=== PATIENT | female | born 1970 | race American Indian/Alaskan Native ===

== ENCOUNTER 2017-07-01 10:36 | Day surgery (SDC) | payer MEDICAID ==
[~2017-07-01 10:36] MED LIST: ANCEF/STERILE WATER 2 GM/20 ML IV NR; HEPARIN SUB-Q NR; NACL 0.9% IR ONE
[2017-07-01] MEDS ORDERED: NACL BACTERIOSTATIC INFILTRATI ONE (11:05)
[2017-07-01] MEDS ORDERED: MARCAINE 0.25% INFILTRATI ONE ×3 (11:10→12:06)
[2017-07-01] MEDS ORDERED: NACL 0.9% 1000 ML 1,000 ML ONE (11:30)
[2017-07-01] MEDS ORDERED: ZOFRAN IV PRN (11:31)
--- NOTE | 2017-07-01 11:32 | Anesthesia Consultation ---
Anesthesia Consult and Med Hx - Airway Anesthetic Teeth Evaluation: Good ROM Head & Neck: Adequate Mental/Hyoid Distance: Adequate Mallampati Class: Class II Intubation Access Assessment: Good - Pulmonary Exam CTA: Yes - Cardiac Exam Cardiac Exam: RRR - Pre-Operative Health Status ASA Pre-Surgery Classification: ASA1 Proposed Anesthetic Plan: General
--- NOTE | 2017-07-01 11:32 | Anesthesia Day of Surgery ---
Anesthesia Day of Surgery - Day of Surgery Patient Examined: Yes Patient H&P Reviewed: Yes Patient is NPO: Yes
[2017-07-01] MEDS ORDERED: SUBLIMAZE ONE (11:35)
[2017-07-01] MEDS ORDERED: DIPRIVAN 10 MG/ML IV ONE (11:35)
[2017-07-01] MEDS ORDERED: XYLOCAINE MPF 2% ONE (11:36)
[2017-07-01] MEDS ORDERED: ZEMURON IV ONE (11:37)
[2017-07-01] MEDS ORDERED: VERSED ONE (11:48)
[2017-07-01] MEDS ORDERED: NACL 0.9% 1000 ML 1,000 ML IV SCH (12:00)
[2017-07-01] MEDS ORDERED: DECADRON ONE (12:04)
[2017-07-01] MEDS ORDERED: ZOFRAN ONE (12:29)
[2017-07-01] MEDS ORDERED: NEOSTIGMINE ONE (12:29)
[2017-07-01] MEDS ORDERED: ROBINUL ONE ×2 (12:29)
[2017-07-01] MEDS ORDERED: BREVIBLOC IV ONE (12:34)
[2017-07-01] MEDS ORDERED: NACL 0.9% IR ONE (12:40)
--- NOTE | 2017-07-01 12:50 | Post Operative Note ---
Date of procedure: 07/01/17 Pre-op diagnosis: symptomatic cholelithiasis Post-op diagnosis: same Findings: see path Procedure: laparoscopic choleycystectomy Anesthesia: GETA Surgeon: BRANDON RUTH Stone Sawyer: NUNO AUGUSTINE Estimated blood loss: minimal Pathology: list (gallbladder) Specimen disposition: to lab Condition: stable Disposition: PACU
--- NOTE | 2017-07-01 12:56 | Discharge Summary ---
Short Stay Discharge Plan Activity: no restrictions Diet: regular Wound: open to air, other (may shower and wash incisions in 2 days) Follow up with: ROSS BAE MD [Primary Care Provider] - 7 Days BRANDON RUTH MD [Staff Physician] - 7 Days Prescriptions: oxyCODONE /ACETAMINOPHEN [Percocet 5/325] 1 - 2 tab PO Q6HR PRN #40 tablet PRN Reason: Pain Promethazine [Phenergan TAB] 25 mg PO Q6HR PRN #10 tab PRN Reason: Nausea
--- NOTE | 2017-07-01 13:26 | Operative Report ---
PREOPERATIVE DIAGNOSIS: Symptomatic cholelithiasis. POSTOPERATIVE DIAGNOSIS: Symptomatic cholelithiasis. PROCEDURE: Laparoscopic cholecystectomy. SURGEON: Luz Elena Rudd M.D. STUDENT SUPPORT SERVICES DIRECTOR: Dr. Wilmar White. TYPE OF ANESTHESIA: General. ESTIMATED BLOOD LOSS: Minimal. CONDITION: Stable. DISPOSITION: To PACU. INDICATIONS: This is a 46-year-old woman with complaints of right upper quadrant pain with nausea and vomiting. She is noted to have gallstones and thought to have biliary colic with cholelithiasis. DESCRIPTION OF PROCEDURE: The patient was brought to the operating room and laid supine on the table. After adequate general endotracheal anesthesia was obtained, her abdomen was prepped and draped in the usual fashion. Initially 0.25% Marcaine was infiltrated above the umbilicus. A small incision was made, Veress needle was inserted, and the abdominal cavity was insufflated to an adequate pressure. Next, the 3 subcostal ports were placed under direct visualization after infiltrating the skin with 0.25% Marcaine. An epigastric 11 mm port and 2 lateral 5 mm ports were placed. Attention was then turned to the gallbladder. The gallbladder was retracted cephalad. The dissection was begun at the neck. The cystic duct and cystic artery were identified at the triangle of Calot as they were going into the gallbladder. These structures were endoclipped proximally and distally and then divided. Next, the gallbladder was taken off the liver bed using a hook cautery. Once the gallbladder was freed, it was retrieved in a specimen retrieval bag through the 11 mm port site. The skin had to be enlarged in order to allow the large stone containing gallbladder to be removed. Once this was done, hemostasis was ascertained in the liver bed and the right upper quadrant was irrigated as there were a few drops of bile spillage. Once this was done, the epigastric and the subcostal ports were removed under direct visualization and then the umbilical port was removed. As much CO2 as possible was evacuated. All the port sites were reapproximated using 4-0 Monocryl in a subcuticular fashion and the wounds were dressed with skin glue. The patient tolerated the procedure. There were no immediate complications. All counts reported as correct. JOB# [id number] SS/NTS
[2017-07-01] MEDS: DILAUDID IV PRN ×4 (13:30→13:59)
[2017-07-01] MEDS ORDERED: PHENERGAN PO PRN (14:00)
[2017-07-01] MEDS ORDERED: PERCOCET 5/325 PO PRN (14:00)
--- NOTE | 2017-07-01 14:05 | Post Anesthesia Evaluation ---
- Post Anesthesia Evaluation Patient Participated: Yes Airway Patent: Yes Stable Respiratory Function: Yes Nausea/Vomiting: No Temp > 96.8F: Yes Pain Manageable: Yes Adequeate Hydration: Yes Anesthesia Complications: No Block Receding Appropriately: Not Applicable
[2017-07-01 14:25] VITALS: BP 137/94
[2017-07-01] MEDS ORDERED: PERCOCET 5/325 PO ONE (14:57)
== END 2017-07-01 15:24 | disposition home or self-care (01) ==
LOC: OR 10:36
PROVIDERS: ATTEND Surgery
DX: K80.10 Calculus of gallbladder with chronic cholecystitis without obstruction (principal); J45.909 Unspecified asthma, uncomplicated; G43.909 Migraine, unspecified, not intractable, without status migrainosus; F41.9 Anxiety disorder, unspecified
CPT/HCPCS: 47562; 81025; 88304; J0690; J1100; J1170; J1644; J2250; J2405; J2704; J2710; J3010; J7030